=== PATIENT | female | born 2005 | race African-American/Black ===

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

== ENCOUNTER 2024-08-15 12:16 | Emergency (ER) | payer MEDICAID, OTHER ==
[~2024-08-15] VITALS: Ht 175.3 cm; Wt 75.7 kg
[~2024-08-15 12:16] MED LIST: LEVE750T4 PO
[2024-08-15] MEDS: LEVETIRACETAM (500MG) 1,000 MG in IV NS 0.9% 90 ML IV SCH (13:03)
[2024-08-15] MEDS ORDERED: LEVE750T4 PO (13:13)
[2024-08-15] MEDS ORDERED: ACETAMINOPHEN ES 500 MG TABLET ONE (13:57)
[2024-08-15] MEDS: ACETAMINOPHEN ES 500 MG TABLET PO ONE (14:01)
[2024-08-15 14:03] VITALS: BP 130/80; TEMP 98.5; O2SAT 99
== END 2024-08-15 14:06 | disposition home or self-care (01) ==
LOC: ER 12:19
DX: R56.9 Unspecified convulsions (principal); F17.200 Nicotine dependence, unspecified, uncomplicated; J45.909 Unspecified asthma, uncomplicated; Z79.899 Other long term (current) drug therapy
CPT/HCPCS: 99284; 96365; J7030; A4223; J1953